=== PATIENT | male | born 1975 | race Asian ===

== ENCOUNTER 2017-07-25 13:40 | Outpatient (CLI) | payer OTHER | END 2017-07-25 13:41 | disposition home or self-care (01) | LOC: SC 13:40 | PROVIDERS: ATTEND Internal Medicine Pulmonary Disease | DX: G47.30 Sleep apnea, unspecified (principal); G47.10 Hypersomnia, unspecified; G47.8 Other sleep disorders; R06.83 Snoring | CPT/HCPCS: 99203; 99212 ==

== ENCOUNTER 2017-09-15 22:01 | Outpatient (CLI) | payer OTHER | END 2017-09-15 22:02 | disposition home or self-care (01) | LOC: SC 22:01 | PROVIDERS: ATTEND Internal Medicine Pulmonary Disease | DX: G47.33 Obstructive sleep apnea (adult) (pediatric) (principal); G47.31 Primary central sleep apnea; G47.61 Periodic limb movement disorder | CPT/HCPCS: 95810 ==

== ENCOUNTER 2017-10-23 08:36 | Outpatient (CLI) | END 2017-10-23 08:37 | disposition home or self-care (01) ==

== ENCOUNTER 2018-01-02 15:49 | Outpatient (CLI) | payer OTHER | END 2018-01-02 15:50 | disposition home or self-care (01) | LOC: SC 15:49 | PROVIDERS: ATTEND Nurse Practitioner Family | DX: G47.33 Obstructive sleep apnea (adult) (pediatric) (principal) | CPT/HCPCS: 99212; 99214 ==

== ENCOUNTER 2018-12-11 11:21 | Outpatient (CLI) | payer OTHER ==
--- NOTE | 2018-12-11 12:42 | SLEEP CARE CONSULTATION ---
Information from patient questionnaire entered by Nellie Sow. I have reviewed and concur with the information entered by Nellie Sow. This document represents the service I personally performed and the decisions made by me, Nemo Marr MD, [facility]. History of Present Illness Previous diagnosis: Mild, Obstructive Sleep Apnea-Hypopnea Syndrome, Central Sleep Apnea-Hypopnea Syndrome AHI: 9.6 Reason for CPAP follow up: annual Equipment obtained from: [facility] Mask style: Full face CPAP Compliance Data - Data Reviewed with Patient Average duration of nightly device use: 4h 58m Compliance rate %: 65.6 Subjective Patient concerns: reports: nasal congestion, dry mouth, nose, throat Initial [place] Sleepiness Scale score: 14 Current [place] Sleepiness Scale score: 5 Review of Systems Review of systems same as previous: Yes Cardiovascular: reports: high blood pressure Respiratory: reports: shortness of breath Urinary: reports: frequency Neurological: reports: headaches Ear/Nose/Throat: reports: nasal congestion, dry mouth/throat, wisdom teeth removed Endocrine: reports: sluggishness, excessive thirst, increased urination Musculoskeletal: reports: back pain Allergies and Home Medications Home medication list reviewed: Yes Impression and Plan HPI: Mr. Roque returned today for annual follow up of nasal CPAP therapy. He was diagnosed to have mild obstructive sleep apnea-hypopnea syndrome (AHI was 9.6). The patient wears a ResMed AirTouch F-20 full face mask. He reports using the device nightly and all through the night. The compliance report shows usage in 143 nights out of the past 180 nights, averaging 6.3 hours a night. He complained of no particular problem with the device such as soreness on the face, dry nose, epistaxis, nasal congestion or headache. He thinks that the pressure of 7 10 cmH2O is comfortable. On the CPAP therapy he notices improvement in his sleep quality, and that he wakes up feeling fresher in the morning and more awake/alert during the day. His notices no snore at all. The average residual AHI is 1.8; and average time in large leak per day is 2 min utes. The 90th percentile pressure is 8,6 cmH2O. PE: No significant change on the physical exam today. His weight is unchanged. IMPRESSION: 1. Obstructive Sleep Apnea-Hypopnea Syndrome, mild, with the patient doing well on nasal CPAP therapy. He has good compliance and significant clinical improvement. The current pressure appears effective and comfortable. Overall, he is very satisfied with treatment and plans to continue with it long-term. No adjustment is necessary today. PLAN: 1. Continue with autoCPAP set at 7 - 10 cmH2O. 2. Try to lose weight 3. Try other full face masks, e.g. ResMed F30. 4. Return in one year for follow up or earlier if there is any problem with the treatment. This visit is time-based and I spent 15 minutes with the patient and more than 50% of the time was spent counseling the patient.
== END 2018-12-11 11:22 | disposition home or self-care (01) ==
LOC: SC 11:21
PROVIDERS: ATTEND Internal Medicine Pulmonary Disease
DX: G47.33 Obstructive sleep apnea (adult) (pediatric) (principal); G47.31 Primary central sleep apnea
CPT/HCPCS: 99212; 99213